=== PATIENT | male | born 1970 | race Caucasian/White ===

== ENCOUNTER 2023-05-21 11:57 | Inpatient (IN) | payer BC ==
[~2023-05-21] VITALS: Ht 188 cm; Wt 87.1 kg
[2023-05-21 12:48] LABS: BASOPHILS % 0.9 % (0.0-2.0); EOSINOPHILS % 0.7 % (0.0-5.0); HEMATOCRIT. 44.8 % (42.0-52.0); LYMPHOCYTES % 18.4 % (20.0-50.0); MEAN CORPUSCULAR HEMOGLOBIN 30.6 pg (28.0-32.0); MEAN CORPUSCULAR HGB CONC 33.5 g/dL (31.0-37.0); MEAN CORPUSCULAR VOLUME 91.4 fL (80.0-94.0); MEAN PLATELET VOLUME 10.1 fl (7.4-10.4); PLATELET 302 x1000/uL (130-400); RED BLOOD CELL COUNT 4.91 mill/uL (4.7-6.1); RED CELL DISTRIBUTION WIDTH 13.6 % (11.6-14.6); WHITE BLOOD COUNT 9.8 x1000/uL (4.5-11.0)
[2023-05-21 12:59] LABS: INR 0.9; PROTHROMBIN TIME 10.2 sec (9.6-11.0)
[2023-05-21 13:01] LABS: CHLORIDE 106 mEq/L (98-107); INDEX HEMOLYSI 2 (1-3); INDEX ICTERIC 1 (1-4); INDEX LIPEMIC 1 (1-3); POTASSIUM 4.5 mEq/L (3.5-5.1); SODIUM 139 mEq/L (136-145)
[2023-05-21 13:11] LABS: ALANINE AMINOTRANSFERASE 23 IU/L (13-61); ALBUMIN 4.2 g/dL (3.4-5.0); ASPARTATE AMINOTRANSFERASE 21 IU/L (15-37); BILIRUBIN TOTAL 0.7 mg/dL (0.1-1.0); CALCIUM 9.1 mg/dL (8.5-10.1); CARBON DIOXIDE 29 mEq/L (21-32); CREATININE 1.4 mg/dL (0.6-1.3); ETHANOL BLOOD < 10 mg/dL (<10); GLUCOSE 103 mg/dL (70-105); TROPONIN I HIGH SENSITIVITY 4 ng/L (<78); UREA NITROGEN BLOOD 9 mg/dL (7-21)
[2023-05-21 13:58] LABS: ERYTHROCYTE SEDIMENTATION RATE 2 mm/hr (0-20)
[2023-05-21 14:21] LABS: CLARITY URINE CLEAR (CLEAR); COLOR URINE YELLOW (YELLOW); GLUCOSE URINE NEGATIVE (NEGATIVE); KETONES URINE 1+ (NEGATIVE); LEUKOCYTE ESTERASE URINE NEGATIVE (NEGATIVE); NITRITE URINE NEGATIVE (NEGATIVE); OCCULT BLOOD URINE NEGATIVE (NEGATIVE); PH URINE 6.5 (4.5-8.0); PROTEIN URINE NEGATIVE (NEGATIVE); SPECIFIC GRAVITY URINE 1.024 (1.005-1.030); UROBILINOGEN URINE 0.2 E.U./dL (0.2-1.0)
[2023-05-21] MEDS ORDERED: IOHEXOL-350 100 ML BOTTLE ONE (14:51)
[2023-05-21 14:58] LABS: *AMPHETAMINES SCREEN URINE PRESUMTIVE POSITIVE (NEGATIVE); *BARBITURATES SCREEN URINE NEGATIVE (NEGATIVE); *BENZODIAZEPINES SCREEN URINE NEGATIVE (NEGATIVE); *COCAINE SCREEN URINE NEGATIVE (NEGATIVE); CANNABINOID URINE SCREEN NEGATIVE (NEGATIVE); ECSTASY MDMA SCREEN URINE NEGATIVE (NEGATIVE); METHADONE URINE SCREEN NEGATIVE (NEGATIVE); OPIATES URINE SCREEN NEGATIVE (NEGATIVE); PHENCYCLIDINE URINE SCREEN NEGATIVE (NEGATIVE)
[2023-05-21] MEDS ORDERED: DEXT15CA PO (18:36)
[2023-05-21] MEDS ORDERED: LAMO200T50 PO (18:36)
[2023-05-21] MEDS ORDERED: FINA1TAB18 PO (18:36)
[2023-05-21 19:06] VITALS: BP 137/78; PULSE 81; RESP 20; TEMP 97.8
[2023-05-21] MEDS ORDERED: ACETAMINOPHEN 500MG TABLET PO PRN (19:15)
[2023-05-21] MEDS ORDERED: LORAZEPAM 2MG/ML CPJ IV NR (19:15)
[2023-05-21 20:00] VITALS: BP 173/101; PULSE 82; RESP 18; TEMP 98.2
[2023-05-22] VITALS: BP 132/80; PULSE 69; RESP 18; TEMP 98.6
[2023-05-22 04:00] VITALS: BP 122/73; PULSE 69; RESP 20; TEMP 97.9
[2023-05-22 08:08] LABS: BASOPHILS % 1.3 % (0.0-2.0); EOSINOPHILS % 2.9 % (0.0-5.0); HEMOGLOBIN. 14.5 g/dL (14.0-18.0); LYMPHOCYTES % 26.1 % (20.0-50.0); MEAN CORPUSCULAR HEMOGLOBIN 31.2 pg (28.0-32.0); MEAN CORPUSCULAR HGB CONC 33.7 g/dL (31.0-37.0); MEAN CORPUSCULAR VOLUME 92.5 fL (80.0-94.0); MEAN PLATELET VOLUME 10.2 fl (7.4-10.4); MONOCYTES % 7.3 % (2.0-8.0); NEUTROPHILS % 62.4 % (40.0-76.0); PLATELET 269 x1000/uL (130-400); RED BLOOD CELL COUNT 4.65 mill/uL (4.7-6.1); WHITE BLOOD COUNT 7.6 x1000/uL (4.5-11.0)
[2023-05-22 08:30] VITALS: BP 114/68; PULSE 64; RESP 18; TEMP 97.8
[2023-05-22] MEDS ORDERED: FINASTERIDE 5MG TABLET PO SCH (09:00)
[2023-05-22] MEDS ORDERED: ASPIRIN 81MG EC TABLET PO SCH (09:00)
[2023-05-22] MEDS ORDERED: LAMOTRIGINE 100MG TABLET PO SCH (09:00)
[2023-05-22] MEDS ORDERED: ENOXAPARIN 40MG/0.4ML SYR SUBCUT SCH (09:00)
[2023-05-22 09:27] LABS: CHLORIDE 108 mEq/L (98-107); INDEX HEMOLYSI 1 (1-3); INDEX ICTERIC 1 (1-4); INDEX LIPEMIC 1 (1-3); SODIUM 140 mEq/L (136-145)
[2023-05-22 11:03] LABS: ALANINE AMINOTRANSFERASE 19 IU/L (13-61); ALBUMIN 3.4 g/dL (3.4-5.0); ASPARTATE AMINOTRANSFERASE 22 IU/L (15-37); BILIRUBIN TOTAL 0.7 mg/dL (0.1-1.0); CALCIUM 8.3 mg/dL (8.5-10.1); CREATININE 1.2 mg/dL (0.6-1.3); GLUCOSE 81 mg/dL (70-105); PROTEIN TOTAL 6.6 g/dL (6.0-8.3); UREA NITROGEN BLOOD 12 mg/dL (7-21)
[2023-05-22 12:00] VITALS: BP 128/73; PULSE 77; RESP 18; TEMP 97.6
[2023-05-22 16:00] VITALS: BP 119/78; PULSE 80; RESP 18; TEMP 98.1
[2023-05-22 16:29] LABS: CARBON DIOXIDE 20 mEq/L (21-32)
[2023-05-22 17:18] VITALS: BP 110/50; PULSE 78; TEMP 97.6; O2SAT 96
== END 2023-05-22 17:00 | disposition home health service (06) | DRG 948 ==
LOC: ER 11:57 → EDBEDREQTM 15:40 → EDBEDREQ 15:40 → 8WST 17:51
PROVIDERS: ADMIT Internal Medicine; ATTEND Internal Medicine
PROC: 4A00X4Z Measurement of Central Nervous Electrical Activity, External Approach (ICD-10-PCS; principal; 2023-05-22)
DX: R53.1 Weakness (principal); F31.9 Bipolar disorder, unspecified; F90.9 Attention-deficit hyperactivity disorder, unspecified type; R26.2 Difficulty in walking, not elsewhere classified; Z82.0 Family history of epilepsy and other diseases of the nervous system
CPT/HCPCS: 36415; 70496; 70498; 70551; 71045; 72141; 72148; 80053; 80061; 80305; 80320; 81003; 84484; 85025; 85651; 93005; 95816; 97161; 99291; J1650; J2060; Q9967; G0480